=== PATIENT | male | born 1980 | race Caucasian/White ===

== ENCOUNTER 2019-06-08 12:57 | Emergency (ER) | payer OTHER ==
[2019-06-08] MEDS ORDERED: ONDANSETRON HCL/PF 4 MG/ 2ML VIAL IVP ONE (13:09)
--- NOTE | 2019-06-08 13:12 | ED Physician Documentation ---
General Adult - HISTORIAN Historian: patient - HPI Stated Complaint: found down Chief Complaint: General Adult Additional Information: Patient presents [facility] ED via EMS from [facility], after going unresponsive. EMS reports patient was sitting drawing when he went unresponsive. CPR was initiated, 12 narcan given and was bagged x 2. Patient was then responsive. Patient ambulated to EMS stretcher. Upon arrival patient was awake, alert and oriented x 3. He moved himself from stretcher to ED cart, Sa02 94% on room air. Onset: hours (1) Timing: better Severity: moderate - ROS CONST: denies: fever EYES/ENT: none CVS/RESP: chest pain GI/: nausea MS/SKIN/LYMPH: none NEURO/PSYCH: denies: headache - PAST HX Past History: none Other History: none Surgeries/Procedures: none Allergies/Adverse Reactions: Allergies Allergy/AdvReac Type Severity Reaction Status Date / Time sulfamethoxazole Allergy Verified 06/08/19 13:41 [From Bactrim] trimethoprim [From Bactrim] Allergy Verified 06/08/19 13:41 vancomycin Allergy Verified 06/08/19 13:41 Home Medications: Ambulatory Orders Medication Instructions Recorded Isoniazid 300 mg PO TUTH18 06/08/19 Pyrazinamide 100 mg PO TUTH 06/08/19 Pyridoxine HCl (Vitamin B6) 25 mg PO DAILY 06/08/19 [Vitamin B-6] - SOCIAL HX Smoking History: non-smoker Alcohol Use: none Drug Use: other (opiates) - FAMILY HX Family History: No - REVIEWED ASSESSMENTS Nursing Assessment Reviewed: Yes Vitals Reviewed: Yes ED Results Lab/Radiology - Radiology Radiology Impressions: Report Submission Date: Jun 08, 2019 1:32:01 PM [employer]SEM[employer]ER [employer] Patient Study Name: SEE COCHRAN Date: Jun 08, 2019 12:52:52 PM [employer]SEM[employer] Modality Type: DX Gender: M Description: CHEST 1VIEW : 76 Institution: [facility] Physician: LISA MANJARREZ Chest 1 view Date of Exam: June 08, 2019. History: Order states: Found down/drug overdose hx: found down/dug over dose, CPR performed. no prior images for comparison (Hx) / Findings: The cardiac and mediastinal silhouettes are normal. The lungs are clear. There is no evidence of infiltrate or effusion. The trachea is midline and aortic arch contour is normal. The pulmonary vascularity is within normal limits. Impression: No acute cardiopulmonary abnormality. 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 by: Jeanine Bruno - Orders Orders: ED Orders Category Date Time Status Continuous EKG monitoring Q30M Care 06/08/19 13:[address] IV Lock 1T Care 06/08/19 13:02 Active CHEST 1VIEW [RAD] Stat Exams 06/08/19 Ordered CBC/PLATELET/DIFF Routine Lab 06/08/19 Ordered CMP Routine Lab 06/08/19 Ordered TROPONIN I Stat Lab 06/08/19 Ordered EKG WITH COMPARISON Stat Ther 06/08/19 Ordered General Adult Physical Exam - PHYSICAL EXAM GENERAL APPEARANCE: no distress EENT: KELSIE NECK: supple RESPIRATORY: no resp distress, breath sounds normal, other (anterior chest wall tenderness) CVS: reg rate & rhythm, heart sounds normal ABDOMEN: soft, normal bowel sounds, non-tender BACK: normal inspection SKIN: warm/dry EXTREMITIES: non-tender NEURO: oriented X3 Discharge Clincal Impression: Drug overdose Qualifiers: Encounter type: initial encounter Injury intent: accidental or unintentional Qualified Code(s): T50.901A - Poisoning by unspecified drugs, medicaments and biological substances, accidental (unintentional), initial encounter Referrals: Dg Mina III, MD [Primary Care Provider] - 2 Days Additional Instructions: 1. Refrain from drug use 2. Drink plenty of fluids to maintain proper hydration 3. Follow up with PCP within 1 week 4. Return to the ER for new or worsening symptoms Condition: Stable Disposition: 01 HOME, SELF-CARE Decision to Admit: NO Date of Decison to Admit: 06/08/19 Decision Time: 14:01
[2019-06-08] MEDS ORDERED: DEXTROSE 5 % AND 0.9 % NACL 1,000 ML IV ONE (13:16)
[2019-06-08] MEDS ORDERED: ONDANSETRON HCL 4 MG TAB.RAPDIS PO ONE (13:35)
[2019-06-08 13:47] LABS: BASOPHILS % 0.2 % (0.0-1.5)
[2019-06-08 13:57] LABS: eGFR (Non-African) > 60
[2019-06-08 14:56] VITALS: BP 115/73
--- NOTE | 2019-06-10 08:38 | Diagnostic Imaging Report ---
[facility]\ [id number] [facility] [id number] Patient Name: SEE COCHRAN Referring Physician: LISA MANUEL Date of : 1980 Gender: M Date of Service: 06/08/2019 Exam Requested: CHEST 1VIEW Chest 1 view Date of Exam: June 08, 2019. History: Order states: Found down/drug overdose hx: found down/dug over dose, CPR performed. no prior images for comparison (Hx) / Findings: The cardiac and mediastinal silhouettes are normal. The lungs are clear. There is no evidence of infiltrate or effusion. The trachea is midline and aortic arch contour is normal. The pulmonary vascularity is within normal limits. Impression: No acute cardiopulmonary abnormality. LAR
== END 2019-06-08 14:47 | disposition home or self-care (01) ==
LOC: ED 12:57
DX: T50.901A Poisoning by unspecified drugs, medicaments and biological substances, accidental (unintentional), initial encounter (principal)
CPT/HCPCS: 36415; 71045; 80053; 84484; 85025; 93005; 99284; A9270; S1016